=== PATIENT | female | born 1985 | race American Indian/Alaskan Native ===

== ENCOUNTER 2018-09-25 11:16 | Emergency (ER) | payer MEDICAID ==
[2018-09-25 11:32] VITALS: BP 130/72
[2018-09-25 12:20] LABS: Hematocrit 31.9 % (30.3-42.9); Hemoglobin 10.5 gm/dl (10.1-14.3); Mean Corpuscular HGB Conc 33 % (30-34); Mean Corpuscular Volume 83 fl (79-97); Platelet Count 335 K/mm3 (140-440); Red Blood Count 3.84 M/mm3 (3.65-5.03); Red Cell Distribution Width 19.9 % (13.2-15.2)
--- NOTE | 2018-09-25 12:21 | Emergency Department Report ---
ED Female HPI - General Chief complaint: OB/Uterine Contractions Stated complaint: 17 WKS BLEEDING Time Seen by Provider: 09/25/18 12:14 Source: patient Mode of arrival: Ambulatory Limitations: No Limitations - History of Present Illness Initial comments: Patient is 33 years old female 5 para 3 and 1 miscarriage. Patient is 17 weeks followed by [facility]. Patient presented to the ER complaining of vaginal bleeding started this morning associated with pelvic cramping. Patient denied any chest pain or shortness of breath. Patient denied any vaginal discharge or urinary symptoms. MD Complaint: vaginal bleeding, pelvic pain -: This morning Radiation: non-radiating Quality: cramping Are you Now?: Yes - Related Data Sexually active: Yes Home Medications Medication Instructions Recorded Confirmed Last Taken No Known Home Medications [No 04/28/16 04/28/16 Unknown Reported Home Medications] Allergies Allergy/AdvReac Type Severity Reaction Status Date / Time No Known Allergies Allergy Verified 04/28/16 15:36 ED Review of Systems ROS: Stated complaint: 17 WKS BLEEDING Other details as noted in HPI Comment: All other systems reviewed and negative Constitutional: denies: chills, fever Respiratory: denies: cough, orthopnea, shortness of breath, SOB with exertion, wheezing Cardiovascular: denies: chest pain, palpitations Gastrointestinal: abdominal pain. denies: nausea, vomiting, diarrhea, constipation, hematemesis, hematochezia Genitourinary: denies: discharge Musculoskeletal: denies: back pain ED Past Medical Hx - Past Medical History Hx Hypertension: No Hx Congestive Heart Failure: No Hx Diabetes: No Hx Deep Vein Thrombosis: No Hx Renal Disease: No Hx Sickle Cell Disease: No Hx Seizures: No Hx Asthma: No Hx COPD: No Hx HIV: No - Surgical History Hx Cholecystectomy: Yes - Social History Smoking Status: Never Smoker Substance Use Type: None - Medications Home Medications: Home Medications Medication Instructions Recorded Confirmed Last Taken Type No Known Home Medications [No 04/28/16 04/28/16 Unknown History Reported Home Medications] ED Physical Exam - General Limitations: No Limitations General appearance: alert, in no apparent distress - Head Head exam: Present: atraumatic, normocephalic, normal inspection - Eye Eye exam: Present: normal appearance, PERRL - ENT ENT exam: Present: normal exam, normal orophraynx, mucous membranes moist - Neck Neck exam: Present: normal inspection, full ROM. Absent: tenderness, meningismus, lymphadenopathy, thyromegaly - Respiratory Respiratory exam: Present: normal lung sounds bilaterally - Cardiovascular Cardiovascular Exam: Present: regular rate, normal rhythm, normal heart sounds - GI/Abdominal GI/Abdominal exam: Present: soft, normal bowel sounds. Absent: distended, tenderness, guarding, rebound, rigid, organomegaly, mass, bruit, pulsatile mass, hernia - Extremities Exam Extremities exam: Present: normal inspection, full ROM, normal capillary refill. Absent: tenderness, pedal edema, calf tenderness - Back Exam Back exam: Present: normal inspection. Absent: full ROM, tenderness, CVA tenderness (R), CVA tenderness (L), muscle spasm, paraspinal tenderness, vertebral tenderness - Neurological Exam Neurological exam: Present: alert, oriented X3, CN II-XII intact, normal gait, reflexes normal - Skin Skin exam: Present: warm, intact, normal color ED Course Vital Signs 09/25/18 11:27 Temperature 98.3 F Pulse Rate 122 H Respiratory 18 Rate Blood Pressure 130/72 O2 Sat by Pulse 99 Oximetry ED Medical Decision Making - Lab Data Result diagrams: 09/25/18 12:05 09/25/18 12:05 - Radiology Data Radiology results: report reviewed US showed single live intrauterineL fetus at 18 wks gestation. Critical care attestation.: If time is entered above; I have spent that time in minutes in the direct care of this critically ill patient, excluding procedure time. ED Disposition Clinical Impression: Vaginal bleeding before 22 weeks gestation Disposition: -07 LEFT AGAINST MED ADVICE Is pt being admited?: No Condition: Stable Instructions: Abdominal Pain in (ED) Referrals: ELISE WILD MD [Primary Care Provider] - 3-5 Days Forms: AMA Form
[2018-09-25 13:11] LABS: BUN/Creatinine Ratio 13; Blood Urea Nitrogen 8 mg/dL (7-17); Calcium 8.8 mg/dL (8.4-10.2); Hemolysis Index 0
--- NOTE | 2018-09-25 15:59 | Ultrasound Report ---
PROCEDURE: US OB >= 14 WEEKS FETUS HISTORY: vaginal bleed with FINDINGS: Real-time ultrasound the pelvis was performed by transabdominal technique. These images demonstrate the biparietal diameter was 4.1 cm which corresponds to 18 weeks and 2 days. Head circumference was 14.9 cm which corresponds to 18 weeks and 0 days. Abdominal circumference was 12.6 cm corresponds to 18 weeks and 1 day. Femur length was 2.8 cm corresponds to 18 weeks and 4 days. cardiac activity is present 149 bpm. Amniotic fluid index was measured at 6.3 cm and appears subjectively within normal limits. Cervical length is 3.6 cm. The fetus lies in breech lie. IMPRESSION: Single live intrauterine gestation with average ultrasound age of approximately 18 weeks and 3 days, in breech lie. Estimated date of delivery is February 24, 2019 This document is electronically signed by Arias Mejia MD., September 25 2018 03:57:21 PM ET
== END 2018-09-25 15:51 | disposition left against medical advice (07) ==
LOC: ED 11:16
DX: O20.9 Hemorrhage in early pregnancy, unspecified (principal); O26.892 Other specified pregnancy related conditions, second trimester; R10.2 Pelvic and perineal pain; Z90.49 Acquired absence of other specified parts of digestive tract; Z3A.18 18 weeks gestation of pregnancy
CPT/HCPCS: 36415; 76805; 80048; 84702; 85027; 86900; 86901; 93005; 93010

== ENCOUNTER 2018-11-01 09:04 | Outpatient (CLI) | payer MEDICAID ==
[2018-11-01 09:47] VITALS: BP 91/50
[2018-11-01] MEDS ORDERED: CELESTONE SOLUSPAN IM SCH (10:00)
== END 2018-11-01 10:30 | disposition home or self-care (01) ==
LOC: TRG 09:04 → LD 09:16 → TRG 10:30
PROVIDERS: ATTEND Obstetrics & Gynecology
DX: O47.02 False labor before 37 completed weeks of gestation, second trimester (principal); Z3A.23 23 weeks gestation of pregnancy
CPT/HCPCS: 96372; J0702

== ENCOUNTER 2018-11-02 09:34 | Outpatient (CLI) | payer MEDICAID ==
[~2018-11-02 09:34] MED LIST: CELESTONE SOLUSPAN IM ONE
[2018-11-02] MEDS ORDERED: CELESTONE SOLUSPAN IM ONE (13:18)
== END 2018-11-02 10:50 | disposition home or self-care (01) ==
LOC: TRG 09:34
PROVIDERS: ATTEND Obstetrics & Gynecology
DX: O47.02 False labor before 37 completed weeks of gestation, second trimester (principal); Z3A.23 23 weeks gestation of pregnancy; Z79.51 Long term (current) use of inhaled steroids
CPT/HCPCS: 96372; J0702

== ENCOUNTER 2018-11-12 08:57 | Inpatient (IN) | payer MEDICAID ==
[2018-11-12] MEDS ORDERED: LACTATED RINGERS 1,000 ML IV ONE (09:01)
[2018-11-12] MEDS ORDERED: BENADRYL PO PRN (09:30)
[2018-11-12] MEDS ORDERED: MILK OF MAGNESIA PO PRN (09:30)
[2018-11-12] MEDS ORDERED: COLACE PO PRN (09:30)
[2018-11-12] MEDS ORDERED: ZOFRAN IV PRN (09:30)
[2018-11-12] MEDS ORDERED: MYLICON PO PRN (09:30)
[2018-11-12] MEDS ORDERED: TYLENOL PO PRN (09:30)
[2018-11-12] MEDS ORDERED: MAGNESIUM SULFATE 40GM/1000ML 40 GM/1,000 ML BAG IV SCH ×2 (10:00→11:00)
[2018-11-12] MEDS ORDERED: AMPICILLIN/NS 2 GM/100 ML 2 GM/100 ML BAG IV ONE (10:00)
[2018-11-12] MEDS ORDERED: MAGNESIUM SULFATE 4GM/100ML 4 GM/100 ML BAG IV ONE ×2 (10:00→11:00)
[2018-11-12] MEDS ORDERED: LACTATED RINGERS 1,000 ML IV SCH ×2 (10:00→11:00)
[2018-11-12] MEDS ORDERED: CELESTONE SOLUSPAN IM ONE (10:00)
[2018-11-12 10:02] LABS: Bilirubin,Urine NEG (Negative); Blood,Urine NEG (Negative); Color,Urine Yellow (Yellow); Mucus,Urine FEW /HPF; Protein,Urine <15 mg/dL mg/dL (Negative); Urobilinogen,Urine < 2.0 mg/dL (<2.0)
[2018-11-12 10:16] LABS: Hematocrit 29.1 % (30.3-42.9); Mean Corpuscular HGB Conc 34 % (30-34); Mean Corpuscular Volume 83 fl (79-97); Platelet Count 286 K/mm3 (140-440); Red Blood Count 3.51 M/mm3 (3.65-5.03); Red Cell Distribution Width 16.7 % (13.2-15.2)
--- NOTE | 2018-11-12 10:57 | Consultation ---
Consult Note - Parent Education I met with parent(s) and discussed the following:: Need for NICU admission, Poss ible need for intubation and surfactant or other resp support, Temperature regulation, Head ultrasounds to evaluate IVH, Eye exams for ROP screening, Possible need for IV fluids/TPN and IV antibiotics, Possible need for umbilical lines, Importance of providing breast milk & encouraged pumping aft delivery, Donor breast milk if baby meets criteria after , Data for survival & survival without significant co-morbidities Parent(s) demonstrated understanding of all the information:: Yes Assessment and Plan - Assessment Gestation:: 25 Estimated Weight: 1Lb 10Oz Baby's gender: Female Baby's name: Mary Kate Additional Comment: BMZx3, Mg. 2.5 cm dialated. PTL. No ROM. 33 yo . EDC 02/24/19. No PMHx - Plan Plan: Agree with Mag & steroids Will attend delivery Please call NICU with questions
[2018-11-12] MEDS ORDERED: PRENATAL VITAMIN PO SCH (11:00)
[2018-11-12] MEDS ORDERED: CELESTONE SOLUSPAN IM SCH (11:00)
--- NOTE | 2018-11-12 11:18 | Ultrasound Report ---
PROCEDURE: US OB FOLLOW UP TECHNIQUE: Limited images obtained of intrauterine HISTORY: presentation and cervical length COMPARISONS: September 25 FINDINGS: Single viable intrauterine in cephalic presentation. Cervical canal incompletely visualized measures approximately 2.2 cm in length, which may reflect ear ly effacement. No evidence of funneling. heart rate 162 bpm. Placenta is located posteriorly, no placenta previa. Amniotic fluid index within normal limits at 12.8 cm. Composite measurements consistent with a gestational age of 25 weeks and 2 days. IMPRESSION: Single viable intrauterine at approximately 25 weeks and 2 days of gestation in cephalic pr esentation. Incompletely visualized cervical canal measures approximately 2.2 cm in length which may reflect ezequiel y effacement. . This document is electronically signed by Tone Cadet MD., November 12 2018 11:16:30 AM ET
--- NOTE | 2018-11-12 14:21 | History and Physical Report ---
History of Present Illness Date of examination: 11/12/18 Chief complaint: back and pelvic pain History of present illness: This patient has a history of PTD, this has been complicated by short cervix. She declined attempt at rescue cerclage at 22weeks. Her cervical length decreased to 0.6cm on 11/04/2018. States she her CL was 1.6cm on 11/09/2018. Exam per RN today was 2cm. She admitted now for PTL Past History : 5 Term Births: 2 Premature Births: 1 Living Children: 3 Para: 3 Aborta: 1 Spont. 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 Family Hx: Mother- thyroid disease Father- HTN, diabetes, kidney failure, pacemaker, hep B, liver ca Paternal grandmother- HTN, diabetes Social Hx: No alcohol or cigarette use. Pt states she smoked weed x1 month ago. Infection History Hx of STD: trich HIV Risk Eval: low risk Hepatitis B Risk Eval: low risk Personal hx. of genital herpes: no Partner hx. of genital herpes: no Rash, Viral, or Febrile illness since last LMP? no Varicella/Chicken Pox Status: Previous Disease Genetic History ADVANCED MATERNAL AGE Congenital Heart Defect: Mom: no Dad: no Aleena Disease: Mom: no Dad: no Thalassemia Mom: no Dad: no Neural Tube Defect Mom: no Dad: no Down's Syndrome Mom: no Dad: no Cayden-Sachs Mom: no Dad: no Sickle Cell Disease/Trait Mom: no Dad: no Hemophilia Mom: no Dad: no Muscular Dystrophy Mom: no Dad: no Cystic Fibrosis Mom: no Dad: no Tabatha Chorea Mom: no Dad: no Mental Retardation Mom: no Dad: no Fragile X Mom: no Dad: no Other Genetic/Chromosomal Disorder Mom: no Dad: no Child w/other defect Mom: no Dad: no Enviromental Exposures Xray Exposure: no Medication, drug, or alcohol use since LMP: no Chemical/Other Exposure: no Exposure to Cat Liter: no Hx of Parvovirus (Fifth Disease): no Occupational Exposure to Children: none Active Medications: None Current Allergies (reviewed today): No known allergies Laboratory Results Past History - Obstetrical History : 5 Medications and Allergies Allergies Allergy/AdvReac Type Severity Reaction Status Date / Time No Known Allergies Allergy Verified 11/12/18 08:59 Home Medications Medication Instructions Recorded Confirmed Last Taken Type Hydroxyprogesterone Caproat/Pf 250 mg IM 1XW 11/12/18 11/12/18 11/09/18 12:00 History [Hydroxyprogest 250 mg/ml Vial] 1 Vit,Ray 74/Iron/Folic 1 each PO DAILY 11/12/18 11/12/18 11/11/18 09:00 History [ Low Iron Tablet] 1 Active Meds: Active Medications Acetaminophen (Tylenol) 650 mg PO Q6H PRN PRN Reason: Pain MILD(1-3)/Fever >100.5/ROMERO Betamethasone Acet/Betameth SodPhos (Celestone Soluspan) 12 mg IM Q24H DENISE Stop: 11/13/18 11:01 Diphenhydramine HCl (Benadryl) 25 mg PO Q6H PRN PRN Reason: Itching Docusate Sodium (Colace) 100 mg PO Q12H PRN PRN Reason: Constipation Magnesium Sulfate (Magnesium Sulfate 40gm/1000ml) 40 gm in 1,000 mls @ 50 mls/hr IV DIRECT DENISE Last Admin: 11/12/18 11:03 Dose: 2 gm/hr, 50 mls/hr Documented by: Lactated Ringer's (Lactated Ringers) 1,000 mls @ 75 mls/hr IV DIRECT DENISE Ampicillin Sodium (Ampicillin/Ns 2 Gm/100 Ml) 2 gm in 100 mls @ 100 mls/hr IV Q6H DENISE; Protocol Stop: 11/14/18 08:59 Magnesium Sulfate (Magnesium Sulfate 40gm/1000ml) 40 gm in 1,000 mls @ 50 mls/hr IV DIRECT DENISE Magnesium Hydroxide (Milk Of Magnesia) 30 ml PO QHS PRN PRN Reason: Laxative Effect Multivitamins/Iron/Calcium ( Vitamin) 1 each PO QDAY [facility] Ondansetron HCl (Zofran) 4 mg IV Q6H PRN PRN Reason: Nausea And Vomiting Simethicone (Mylicon) 80 mg PO Q6H PRN PRN Reason: Gas pain Review of Systems All systems: negative Genitourinary: pelvic pain - Vital Signs Vital signs: Vital Signs Pulse BP 92 H 108/57 11/12/18 09:27 11/12/18 09:27 Temp Pulse Resp BP Pulse Ox 98.4 F 109 H 18 112/61 97 11/12/18 12:10 11/12/18 14:12 11/12/18 12:10 11/12/18 13:27 11/12/18 14:12 Results Result Diagrams: 11/12/18 10:00 Abnormal lab results 11/12/18 11/12/18 Range/Units 09:30 10:00 RBC 3.51 L (3.65-5.03) M/mm3 Hgb 10.0 L (10.1-14.3) gm/dl Hct 29.1 L (30.3-42.9) % RDW 16.7 H (13.2-15.2) % U Epithel Cells (Auto) 17.0 H (0-13.0) /HPF All other labs normal. Assessment and Plan - Patient Problems (1) 24 weeks gestation of Current Visit: Yes Status: Acute (2) labor in second trimester Current Visit: Yes Status: Acute Qualifiers: labor delivery status: without delivery Qualified Code(s): O60.02 - labor without delivery, second trimester Plan to address problem: Steroid and MgSO4 therapy. Will discontinue MgSO4 ~24hours after second dose of steroids MgSO4 side effects and adverse reactions explained. She was informed of, but limited to, pulmonary edema and lethargy and emphasized the importance of strict I&O to prevent complications. The potential difficulty of managing UO wihtout olivares explained, she voiced understanding and refused olivares catheter. Otherwise she agrees with plan of care. (3) Advanced maternal age (AMA) in Current Visit: Yes Status: Acute (4) History of delivery, currently in second trimester Current Visit: Yes Status: Acute
[2018-11-12] MEDS: AMPICILLIN/NS 2 GM/100 ML 2 GM/100 ML BAG IV SCH ×2 (16:48→20:05)
[2018-11-12 20:28] VITALS: BP 129/67
--- NOTE | 2018-11-12 22:57 | Event Note ---
Date: 11/12/18 Patient is upset about being and now refusing MgSO4 tocolysis and monitoring. She did not want to be and with the current complications she's been placed on bedrest by [facility] d/t short cervix and threatened delivery therefore she cannot work and now is having financial difficulties,she cannot participate in the care and activities of her other children. She's uncomfortable here and has had side effects for the MgSO4. Plan of care and reasoning for care plan again explained. She does recall the discussion she had with Dr. Colvin concerning complications of prematurity. She states understand that if her baby delivers now she may or experience severe disabling complications including but not limited to brain damage. Now states she's ok with this baby living or dying. She was informed I cannot make her stay here for care. 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 Offered mental health consultation and social services coordinator assistance. She emphatically denies SI/HI. She states she understands the consequences of refusing care. She states she will stay for her second dose of steroids but refuses t's monitoring, will allow tocometer.
== END 2018-11-13 07:55 | disposition left against medical advice (07) | DRG 782 ==
LOC: TRG 08:57 → LD 09:30 → TRG 17:39
PROVIDERS: ADMIT Obstetrics & Gynecology; ATTEND Obstetrics & Gynecology
DX: O26.872 Cervical shortening, second trimester (principal); O60.02 Preterm labor without delivery, second trimester; Z90.49 Acquired absence of other specified parts of digestive tract; Z82.49 Family history of ischemic heart disease and other diseases of the circulatory system; Z83.3 Family history of diabetes mellitus; Z84.89 Family history of other specified conditions; Z3A.24 24 weeks gestation of pregnancy
CPT/HCPCS: 36415; 59025; 76816; 81001; 83735; 85027; 86592; 86850; 86900; 86901; 87116; G0378; J0290; J0702; J3475; J7120

== ENCOUNTER 2018-12-13 00:56 | Inpatient (IN) | payer MEDICAID ==
[2018-12-13] MEDS ORDERED: SUBLIMAZE ONE (01:25)
[2018-12-13] MEDS ORDERED: SUBLIMAZE IV ONE (01:26)
[2018-12-13 01:34] LABS: Hematocrit 30.8 % (30.3-42.9); Hemoglobin 10.1 gm/dl (10.1-14.3); Mean Corpuscular HGB Conc 33 % (30-34); Mean Corpuscular Volume 83 fl (79-97); Platelet Count 337 K/mm3 (140-440); Red Blood Count 3.73 M/mm3 (3.65-5.03); Red Cell Distribution Width 16.8 % (13.2-15.2)
--- NOTE | 2018-12-13 02:33 | History and Physical Report ---
History of Present Illness Date of examination: 12/13/18 Date of admission: 12/13/18 00:59 Chief complaint: labor History of present illness: Menstrual History Regularity: regular Menses every: 28 days Duration: 5 LMP: 04/14/2018 LMP reliability: month known LMP character: building pressure washer test type: urine test Date: 07/07/2018 BC at conception: none Planned ? no EDC Calculations EDC Confirmation: 02/27/2019 Gestational Age: 6 3/7 weeks Past History : 5 Term Births: 2 Premature Births: 1 Living Children: 3 Para: 3 Aborta: 1 Spont. 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 Family Hx: Mother- thyroid disease Father- HTN, diabetes, kidney failure, pacemaker, hep B, liver ca Paternal grandmother- HTN, diabetes Social Hx: No alcohol or cigarette use. Pt states she smoked weed x1 month ago. Infection History Hx of STD: trich HIV Risk Eval: low risk Hepatitis B Risk Eval: low risk Personal hx. of genital herpes: no Partner hx. of genital herpes: no Rash, Viral, or Febrile illness since last LMP? no Varicella/Chicken Pox Status: Previous Disease Genetic History ADVANCED MATERNAL AGE Congenital Heart Defect: Mom: no Dad: no Aleena Disease: Mom: no Dad: no Thalassemia Mom: no Dad: no Neural Tube Defect Mom: no Dad: no Down's Syndrome Mom: no Dad: no Cayden-Sachs Mom: no Dad: no Sickle Cell Disease/Trait Mom: no Dad: no Hemophilia Mom: no Dad: no Muscular Dystrophy Mom: no Dad: no Cystic Fibrosis Mom: no Dad: no Mcgraw Chorea Mom: no Dad: no Mental Retardation Mom: no Dad: no Fragile X Mom: no Dad: no Other Genetic/Chromosomal Disorder Mom: no Dad: no Child w/other defect Mom: no Dad: no Enviromental Exposures Xray Exposure: no Medication, drug, or alcohol use since LMP: no Chemical/Other Exposure: no Exposure to Cat Liter: no Hx of Parvovirus (Fifth Disease): no Occupational Exposure to Children: none Active Medications: None Current Allergies (reviewed today): No known allergies Past History Past Medical History: other (see HPI) Past Surgical History: other (see HPI) CONCEPT ARTIST History: other (see HPI) Family/Genetic History: other (see HPI) Social history: other (see HPI) - Obstetrical History : 5 Medications and Allergies Allergies Allergy/AdvReac Type Severity Reaction Status Date / Time No Known Allergies Allergy Verified 11/12/18 08:59 Home Medications Medication Instructions Recorded Confirmed Last Taken Type Hydroxyprogesterone Caproat/Pf 250 mg IM 1XW 11/12/18 11/12/18 11/09/18 12:00 History [Hydroxyprogest 250 mg/ml Vial] 1 Vit,Ray 74/Iron/Folic 1 each PO DAILY 11/12/18 11/12/18 11/11/18 09:00 History [ Low Iron Tablet] 1 Review of Systems All systems: negative Genitourinary: contractions (started on wednesday, became more intense wednesday night, awoke pt from sleep) - Vital Signs Vital signs: Vital Signs Pulse BP 107 H 130/58 12/13/18 02:01 12/13/18 02:01 Temp Pulse Resp BP Pulse Ox 100 H 117/55 12/13/18 02:31 12/13/18 02:31 - Physical Exam Breasts: Positive: normal Cardiovascular: Regular rate, Normal S1, Normal S2 Lungs: Positive: Clear to auscultation, Normal air movement Abdomen: Positive: normal appearance, soft, normal bowel sounds. Negative: distention, tenderness Genitourinary (Female): Positive: normal external genitalia, normal perenium Vulva: both: normal Vagina: Positive: normal moisture. Negative: discharge Cervix: Negative: lesion, discharge Uterus: Positive: normal size, normal contour Adnexa: both: normal Anus/Rectum: Positive: normal perianal skin. Negative: rectal mass, hemorrhoids Extremities: Deep Tendon Reflex Grade: Normal +2 - Obstetrical FHR: auscultation normal Uterine Contraction Monitor Mode: External Cervical Dilatation: 9.5 (bbow vtx) Cervical Effacement Percentage: 100 station: 1 Uterine Contraction Pattern: Regular Uterine Tone Measurement Phase: Contraction Uterine Contraction Intensity: Moderate Results Result Diagrams: 12/13/18 01:00 Abnormal lab results 12/13/18 Range/Units 01:00 WBC 14.5 H (4.5-11.0) K/mm3 MCH 27 L (28-32) pg RDW 16.8 H (13.2-15.2) % All other labs normal. Assessment and Plan 33 y.o. IUP at 29w1d presents to triage with c/o contractions since Wednesday letty, she reports they became more intense Wednesday evening, awaking her from sleep prior to arrival to triage. SVE on admission is anterior lip, BBOW, +1 station. BS US to confirm presentation shows cephalic. Pt reports receiving 2 series of BMZ injx and hx of ptd x2, receiving progesterone injections per AMF orders. NICU aware of admission, at bedside consulting with patient r/t prognosis and POC for . Dr. Purcell aware of admission and assessment. Anticipate imminent .
--- NOTE | 2018-12-13 02:39 | Procedure Note ---
OB Delivery Note - Delivery Date of Delivery: 12/13/18 Business Instructor: SHEELA ARMSTRONG Estimated blood loss: 200cc - Vaginal Delivery presentation: vertex Delivery position: OA Delivery induction: none Delivery monitor: external FHT, external uterine Route of delivery: Delivery placenta: spontaneous (to pathology) Delivery cord: nuchal cord (x2, tight- 1 loop reduced, somersault maneuver through second loop) Episiotomy: none Delivery laceration: none Anesthesia: intravenous Delivery comments: Patient involuntarily pushing, SVE is complete-SROM with maternal pushing efforts, meconium stained foul smelling amniotic fluid noted, NICU aware, at bedside. Infant delivered within 3 pushes. Tight nuchal noted after delivery of head, reduced easily. Pt unable to control pushing efforts. Second nuchal loop noted, delivered through quickly with somersault maneuver. Cord clamped x2 and cut per instruction of NICU team, handed off to team. Placenta delivered complete and intact, sent to pathology. Pitocin to IV. Fundus is firm, ML. No lacerations to repain. Hemostasis achieved. VSSAF. Patient reports being comfortable. NICU team assessing and continuing interventions for infant, assigned apgars 5/8, mother updated on infant condition and transferred to NICU. Mother remains LDR stable. - Infant A at 1 minute: 5 at 5 minutes: 8 (intubted) Gender: Female (wt unknown at this time d/t acuity)
[2018-12-13] MEDS ORDERED: BENADRYL PO PRN (02:54)
[2018-12-13] MEDS ORDERED: TYLENOL PO PRN (02:54)
[2018-12-13] MEDS ORDERED: PHENERGAN PR PRN (02:54)
[2018-12-13] MEDS ORDERED: PHENERGAN PO PRN (02:54)
[2018-12-13] MEDS ORDERED: TUCKS PAD TP PRN (02:54)
[2018-12-13] MEDS ORDERED: ZOFRAN IV PRN (02:54)
[2018-12-13] MEDS ORDERED: DULCOLAX PR PRN (02:54)
[2018-12-13] MEDS ORDERED: SODIUM CHLORIDE FLUSH SYRINGE 10 ML IV PRN (03:00)
[2018-12-13] MEDS ORDERED: PITOCin/NS 20 UNIT/1000ML DRIP 20 UNITS/1,000 ML BAG IV SCH (03:00)
[2018-12-13] MEDS: IBUPROFEN PO SCH ×3 (03:55→21:10)
[2018-12-13] MEDS: MILK OF MAGNESIA PO PRN (10:42)
[2018-12-13] MEDS: PRENATAL VITAMIN PO SCH (10:42)
[2018-12-13 16:00] LABS: Hematocrit 24.7 % (30.3-42.9)
[2018-12-13] MEDS: LANSINOH TP PRN (17:45)
[2018-12-14] MEDS: IBUPROFEN PO SCH ×2 (02:45→09:20)
[2018-12-14] MEDS ORDERED: BOOSTRIX IM ONE (06:00)
--- NOTE | 2018-12-14 08:29 | Discharge Summary ---
Providers - Providers Date of Admission: 12/13/18 00:59 Date of discharge: 12/14/18 (patient desires discharge today) Attending physician: NIMO MORALEZ 12/13/18 02:54 Consult to Game Manager [CONS] Routine Reason For Exam: assistance with , SNS Primary care physician: NIMO MORALEZ Hospitalization Reason for admission: active labor Condition: Good Pertinent studies: post delivery H&H 8/24.7, anemia d/t acute blood loss at delivery. Fe ordered. Pt is asymptomatic. Procedures: Hospital course: uncomplicated and course Disposition: DC- TO HOME OR SELFCARE Core Measure Documentation - Palliative Care Palliative Care/ Comfort Measures: Not Applicable - Core Measures Any of the following diagnoses?: none Exam - Constitutional Vitals: Temp Pulse Resp BP Pulse Ox 98.6 F 90 18 95/54 95 12/13/18 23:52 12/13/18 23:52 12/13/18 23:52 12/13/18 23:52 12/13/18 23:52 General appearance: Present: no acute distress, well-nourished - EENT Eyes: Present: PERRL ENT: hearing intact, clear oral mucosa - Neck Neck: Present: supple, normal ROM - Respiratory Respiratory effort: normal Respiratory: bilateral: CTA - Cardiovascular Heart Sounds: Present: S1 & S2. Absent: rub, click - Extremities Extremities: pulses symmetrical, No edema Peripheral Pulses: within normal limits - Abdominal General gastrointestinal: Present: soft, non-tender, non-distended, normal bowel sounds Female genitourinary: Present: normal - Integumentary Integumentary: Present: clear, warm, dry - Musculoskeletal Musculoskeletal: gait normal, strength equal bilaterally - Psychiatric Psychiatric: appropriate mood/affect, intact judgment & insight - Neurologic Neurologic: CNII-XII intact, moves all extremities - Additional findings Additional findings: Fundus firm, ML, U/1. Vaginal bleeding is scant, patient denies any heavy bleeding or clots. Patient reports pain is well controlled with ibuprofen. Reviewed H&H and VS with patient, she denies any dizziness or feeling faint with ambulation or position changes, asymptomatic. Will send home with rx for iron and colace. Pt reports infant is doing well in NICU, she is pumping breast milk for infant. Encouraged increase in water intake. Pt desires discharge today, will f/u in office for PP appt in 4 weeks. Plan Activity: no restrictions Diet: regular Follow up with: NIMO MORALEZ MD [Primary Care Provider] - 01/11/19 (Please call [phone] to schedule your post appointment in 4 weeks. Please call with any questions or concerns. ) Prescriptions: Docusate Sodium [Colace] 100 mg PO BID PRN #60 capsule PRN Reason: Constipation Ferrous Sulfate [Feosol 325 MG tab] 325 mg PO BID #60 tablet
[2018-12-14] MEDS: PRENATAL VITAMIN PO SCH (09:19)
[2018-12-14] MEDS: LANSINOH TP PRN (09:29)
[2018-12-14] MEDS: MILK OF MAGNESIA PO PRN (09:30)
[2018-12-14] MEDS ORDERED: FEOSOL PO SCH (10:00)
[2018-12-14] MEDS ORDERED: COLACE PO SCH (10:00)
[2018-12-14 11:08] VITALS: BP 107/50
== END 2018-12-14 10:40 | disposition home or self-care (01) | DRG 775 ==
LOC: TRG 00:56 → LD 00:59 → OB 05:45
PROVIDERS: ADMIT Obstetrics & Gynecology; ATTEND Obstetrics & Gynecology
PROC: 10E0XZZ Delivery of Products of Conception, External Approach (ICD-10-PCS; principal; 2018-12-13)
PROC: 3E0234Z Introduction of Serum, Toxoid and Vaccine into Muscle, Percutaneous Approach (ICD-10-PCS; 2018-12-14)
DX: O60.14X0 Preterm labor third trimester with preterm delivery third trimester, not applicable or unspecified (principal); O69.1XX0 Labor and delivery complicated by cord around neck, with compression, not applicable or unspecified; O77.0 Labor and delivery complicated by meconium in amniotic fluid; O90.81 Anemia of the puerperium; D62 Acute posthemorrhagic anemia; Z3A.29 29 weeks gestation of pregnancy; Z37.0 Single live birth; Z23 Encounter for immunization; Z90.49 Acquired absence of other specified parts of digestive tract
CPT/HCPCS: 36415; 85014; 85018; 85027; 86592; 86850; 86900; 86901; 88307; 90471; 90715; G0378; A6250; J3010; Q0169